=== PATIENT | female | born 1955 | race Native Hawaiian/Other Pacific Islander ===

== ENCOUNTER 2018-03-23 23:34 | Emergency (ER) | payer OTHER ==
[2018-03-23 23:35] VITALS: BMI 24.7
[2018-03-23 23:55] VITALS: RESP 20
--- NOTE | 2018-03-24 02:42 | ED PDOC ---
Arrival/HPI - General Chief Complaint: Eye Problem Time Seen by Provider: 03/24/18 00:42 Historian: Patient, Family, [employer] - History of Present Illness Narrative History of Present Illness (Text): 62yr old female presents today with redness to the right eye. pt states she noticed the redness yesterday. pt denies any trauma or injury. pt states her friend noticed the redness. pt states she applied visine without improvement. pt denies pain. denies headaches. denies fever/chills. 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 pt denies any other complaints. Time/Duration: Other (yesterday) Symptom Onset: Sudden Symptom Course: Unchanged Quality: Other (NO pain) Past Medical History - Provider Review Nursing Documentation Reviewed: Yes - Travel History Have you recently traveled outside [place] w/in the past 3 mons?: No - Infectious Disease Hx of Infectious Diseases: None - Tetanus Immunization Tetanus Immunization: Unknown - Cardiac Other/Comment: DIABETES; HIGH CHOLESTEROL - Pulmonary Hx Respiratory Disorders: No - Endocrine/Metabolic Hx Diabetes Mellitus Type 2: Yes - Musculoskeletal/Rheumatological Hx Falls: No - Gastrointestinal Hx Gastrointestinal Disorders: No - Genitourinary/Gynecological Hx Genitourinary Disorders: Yes (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,HYSTERECTOMY) - Psychiatric Hx Substance Use: No - Surgical History Other/Comment: abdominal surgery - Anesthesia Hx Anesthesia: Yes - Suicidal Assessment Feels Threatened In Home Enviroment: No Family/Social History - Physician Review Nursing Documentation Reviewed: Yes Family/Social History: Unknown Family HX Smoking Status: Never Smoked Hx Alcohol Use: No Hx Substance Use: No Hx Substance Use Treatment: No Allergies/Home Meds Allergies/Adverse Reactions: Allergies MDX Penicillin [Penicillin] Allergy (Severe, Verified 04/01/15 17:28) Tremors MDX Shellfish [Shellfish] Allergy (Verified 04/02/15 13:53) ITCHING Home Medications: Home Meds Medication Instructions Recorded Confirmed Glimepiride 4 mg PO BID 04/02/15 04/02/15 Lipitor 20 mg PO DAILY 04/02/15 04/02/15 Mobic 7.5 mg PO DAILY 04/02/15 04/02/15 Vitamin D 4,000 units PO DAILY 04/02/15 04/02/15 Review of Systems - Review of Systems Constitutional: absent: Fatigue, Fevers Eyes: Other (right eye redness). absent: Vision Changes, Photophobia, Eye Pain Respiratory: absent: SOB, Cough Cardiovascular: absent: Chest Pain Gastrointestinal: absent: Abdominal Pain, Vomiting Musculoskeletal: absent: Arthralgias Skin: absent: Laceration Neurological: absent: Headache, Dizziness Physical Exam Vital Signs Reviewed: Yes Vital Signs Temp Pulse Resp BP Pulse Ox 03/24/18 02:41 97.2 F L 76 20 140/78 95 03/23/18 23:51 97.8 F 71 20 119/68 100 Temperature: Afebrile Blood Pressure: Normal Pulse: Regular Respiratory Rate: Normal Appearance: Positive for: Well-Appearing, Non-Toxic, Comfortable Pain Distress: None Mental Status: Positive for: Alert and Oriented X 3 - Systems Exam Head: Present: Atraumatic Pupils: Present: PERRL Extroacular Muscles: Present: EOMI Conjunctiva: Present: Other (right eye; + subconjunctival hemorrhage noted to lateral aspect of sclera. no periorbital edema or tenderness. no ecchymosis. ). No: Normal Ears: Present: Normal, NORMAL TM Mouth: Present: Moist Mucous Membranes Nose (External): Present: Atraumatic Nose (Internal): Present: Normal Inspection Neck: Present: Normal Range of Motion Respiratory/Chest: Present: Clear to Auscultation Cardiovascular: Present: Regular Rate and Rhythm Neurological: Present: GCS=15 Skin: Present: Warm, Dry, Normal Color. No: Rashes Psychiatric: Present: Alert, Oriented x 3 Medical Decision Making ED Course and Treatment: Patient is nontoxic well-appearing in no distress with stable vital signs. Patient was found to have subconjunctival hemorrhage in the right eye. There is no periorbital edema erythema or ecchymosis. No periorbital tenderness. Patient denies any pain. Visual acuity is limited in the right eye due to past history of visual impairment in the right eye. I discussed in depth with the patient and family member when a subconjunctival hemorrhage is. I've advised follow-up with the eye doctor within the next 2 days. I've advised immediate return if symptoms worsen persist or if new concerning symptoms develop Patient verbalizes understanding of discharge instructions and need for immediate followup. pt was seen and evaluated by dr. nicole. Impression: Subconjunctival hemorrhage Follow-up with the eye doctor within the next 2 days Follow-up with primary care physician within the next 2 days Return if symptoms worsen persist or if new concerning symptoms develop - Lab Interpretations Lab Results: Lab Results 03/24/18 00:11: POC Glucose (mg/dL) 138 H Disposition/Present on Arrival - Present on Arrival Any Indicators Present on Arrival: No History of DVT/PE: No History of Uncontrolled Diabetes: No Urinary Catheter: No History of Decub. Ulcer: No History Surgical Site Infection Following: None - Disposition Have Diagnosis and Disposition been Completed?: Yes Diagnosis: Subconjunctival hemorrhage Disposition: HOME/ ROUTINE Disposition Time: 02:00 Patient Plan: Discharge Condition: GOOD Discharge Instructions (ExitCare): Subconjunctival Hemorrhage Additional Instructions: Follow up with the eye doctor within the next 2 days return if symptoms worsen,persist or if new symptoms develop Referrals: Boom Garcia [Staff Provider] - Follow up with primary Ramón Arce MD [Staff Provider] - Follow up with primary Forms: [facility] ([place])
[2018-03-24 02:45] VITALS: BP 140/78; PULSE 76; TEMP 97.2; O2SAT 95
== END 2018-03-24 02:41 | disposition home or self-care (01) ==
LOC: ED 23:34
DX: H11.31 Conjunctival hemorrhage, right eye (principal); E11.9 Type 2 diabetes mellitus without complications; E78.00 Pure hypercholesterolemia, unspecified